=== PATIENT | male | born 1945 | race Caucasian/White ===

== ENCOUNTER 2017-09-16 06:42 | Inpatient (IN) | payer OTHER, SELFPAY ==
[~2017-09-16] VITALS: Ht 165.1 cm; Wt 78.1 kg
[~2017-09-16 06:42] MED LIST: ALBIPROI INH; AMLO10; AMLO5 PO; AMOX500 PO; Ambien10 MG PO; CYCL10 PO; DIAZ2 PO; DIAZ5 PO; DIPATR; Duoneb 2.5-0.5 M3 ML INH; ERGO400 PO; Emla Cream30 GM TP; FLUO10 PO; HYDACE5 PO; HYDMOR2 PO; HYDPAM50 PO; IBUP800 PO; LEVFLO500 PO; LEVSOD150 PO; LEVSOD50; LEVSOD50 PO; LISI5 PO; LORA.5 PO; LORA1 PO; OMEP20ER PO; ONDA8 PO; OXYACE5T PO; OXYC15ER PO; OXYC5 PO; PRED1; PROM25; Prednisone20 MG PO; Roxicodone15 MG PO; SULTRISS PO; Strattera PO; TRAZ50 PO; VENL75ER; Ventolin Soln3 ML INH; ZOLP10; ZOLP5 PO; Zofran8 MG PO; Zoloft50 MG PO
[2017-09-16 08:05] LABS: Hematocrit 32.4 % (37.0-53.0); Hemoglobin 10.2 g/dL (13.5-17.5); Mean Corpuscular HGB 29.7 pg (26.0-34.0); Mean Corpuscular HGB Conc 31.5 g/dL (31.5-36.5); Mean Corpuscular Volume 94 fL (80-100); RDW Coefficient Variation 16.2 % (11.7-14.2); RDW Standard Deviation 56.2 fL (35.1-46.3); Red Blood Cell Count 3.44 M/mm3 (4.30-5.90)
[2017-09-16 08:05] LABS: Influenza A Negative (NEGATIVE); Influenza B Negative (NEGATIVE)
[2017-09-16 08:11] LABS: Platelet Count 13 K/mm3 (150-400); White Blood Cell Count 0.14 K/mm3 (4.00-11.30)
[2017-09-16 08:19] LABS: Alanine Aminotransfer (ALT/SGP 19 U/L (12-78); Albumin, Blood 2.5 g/dL (3.4-5.0); Albumin/Globulin Ratio 0.8 (0.8-1.8); Alk Phos 88 U/L (50-136); Anion Gap 13 mmol/L (6-16); Aspartate Aminotrans (AST/SGOT 8 U/L (12-37); Bilirubin, Total 1.5 mg/dL (0.1-1.0); Blood Urea Nitrogen 18 mg/dL (8-24); Bun/Creatinine Ratio 22.5 (12.0-20.0); CO2, Blood 19 mmol/L (21-32); Calcium, Blood 7.8 mg/dL (8.5-10.1); Chloride, Blood 106 mmol/L (98-108); Glomerular Filtration Rate >60 (60-); Glucose, Blood 326 mg/dL (70-99); Potassium, Blood 4.7 mmol/L (3.5-5.5); Sodium, Blood 138 mmol/L (136-145); Total Protein, Blood 5.5 g/dL (6.4-8.2)
[2017-09-16] MEDS ORDERED: ZOLP10 PO (08:30)
[2017-09-16] MEDS ORDERED: MORP15ER PO (08:34)
[2017-09-16] MEDS ORDERED: Sudogest30 MG PO (15:19)
[2017-09-16] MEDS ORDERED: DULO60 PO (15:22)
[2017-09-16] MEDS ORDERED: LEVSOD150 PO (15:22)
[2017-09-17 04:23] LABS: Hematocrit 28.1 % (37.0-53.0); Hemoglobin 9.1 g/dL (13.5-17.5); Mean Corpuscular HGB 29.9 pg (26.0-34.0); Mean Corpuscular HGB Conc 32.4 g/dL (31.5-36.5); Mean Corpuscular Volume 92 fL (80-100); RDW Coefficient Variation 16.2 % (11.7-14.2); RDW Standard Deviation 55.2 fL (35.1-46.3); Red Blood Cell Count 3.04 M/mm3 (4.30-5.90)
[2017-09-17 04:26] LABS: Platelet Count 6 K/mm3 (150-400)
[2017-09-17 04:39] LABS: Alanine Aminotransfer (ALT/SGP 14 U/L (12-78); Albumin, Blood 2.2 g/dL (3.4-5.0); Albumin/Globulin Ratio 0.7 (0.8-1.8); Alk Phos 65 U/L (50-136); Anion Gap 17 mmol/L (6-16); Aspartate Aminotrans (AST/SGOT 7 U/L (12-37); Bilirubin, Total 1.3 mg/dL (0.1-1.0); Blood Urea Nitrogen 21 mg/dL (8-24); CO2, Blood 15 mmol/L (21-32); Calcium, Blood 7.4 mg/dL (8.5-10.1); Chloride, Blood 114 mmol/L (98-108); Creatinine, Blood 0.88 mg/dL (0.60-1.20); Glomerular Filtration Rate >60 (60-); Glucose, Blood 304 mg/dL (70-99); Magnesium, Blood 2.2 mg/dL (1.6-2.4); Potassium, Blood 4.5 mmol/L (3.5-5.5); Sodium, Blood 146 mmol/L (136-145); Total Protein, Blood 5.2 g/dL (6.4-8.2)
[2017-09-17 06:25] LABS: Prothrombin Time Results 21.2 Sec (9.7-11.5)
[2017-09-17 06:30] LABS: Anion Gap 17 mmol/L (6-16); Blood Urea Nitrogen 22 mg/dL (8-24); Bun/Creatinine Ratio 26.1 (12.0-20.0); CO2, Blood 14 mmol/L (21-32); Calcium, Blood 7.1 mg/dL (8.5-10.1); Chloride, Blood 117 mmol/L (98-108); Creatinine, Blood 0.84 mg/dL (0.60-1.20); Glomerular Filtration Rate >60 (60-); Glucose, Blood 274 mg/dL (70-99); Potassium, Blood 4.5 mmol/L (3.5-5.5); Sodium, Blood 148 mmol/L (136-145)
[2017-09-17 12:05] LABS: Source, Urine Clean Catch
[2017-09-17 12:07] LABS: Bilirubin, Urine Neg (Neg); Blood, Urine 5+ (Neg); Glucose Qualitative, Urine 4+ (Neg); Ketones, Urine 2+ (Neg); Leukocyte Esterase, Urine 1+ (Neg); Nitrite, Urine Neg (Neg); Protein, Urine 3+ (Neg); Urobilinogen, Urine NORM (Normal)
[2017-09-17 12:10] LABS: Appearance, Urine Bloody (Clear); Color, Urine Red (P-Yellow)
[2017-09-17 12:17] LABS: Anion Gap 15 mmol/L (6-16); Blood Urea Nitrogen 21 mg/dL (8-24); CO2, Blood 16 mmol/L (21-32); Calcium, Blood 7.3 mg/dL (8.5-10.1); Chloride, Blood 116 mmol/L (98-108); Creatinine, Blood 0.72 mg/dL (0.60-1.20); Glomerular Filtration Rate >60 (60-); Glucose, Blood 204 mg/dL (70-99); Potassium, Blood 4.1 mmol/L (3.5-5.5); Sodium, Blood 147 mmol/L (136-145)
[2017-09-17 12:18] LABS: Red Blood Cells, Urine TNTC /hpf (0-2); Squamous Epithelial Cells Not Seen /hpf (Few)
[2017-09-17 12:19] LABS: Bacteria Not Seen /hpf; White Blood Cells, Urine Not Seen /hpf (0-5)
[2017-09-18 04:14] LABS: BASOPHILS PERCENT AUTO 0 % (0-2); EOSINOPHILS PERCENT AUTO 0 % (0-6); Hematocrit 25.7 % (37.0-53.0); Hemoglobin 8.3 g/dL (13.5-17.5); IMMATURE GRAN PERCENT AUTO 0 % (0-1); LYMPHOCYTES PERCENT AUTO 91 % (21-46); MONOCYTES ABSOLUTE AUTO 0.01 K/mm3 (0.16-1.47); MONOCYTES PERCENT AUTO 9 % (4-13); Mean Corpuscular HGB 30.1 pg (26.0-34.0); Mean Corpuscular HGB Conc 32.3 g/dL (31.5-36.5); Mean Corpuscular Volume 93 fL (80-100); Mean Platelet Volume 10.3 fL (9.1-12.4); NEUTROPHILS PERCENT AUTO 0 % (41-73); RDW Coefficient Variation 16.2 % (11.7-14.2); RDW Standard Deviation 55.5 fL (35.1-46.3); Red Blood Cell Count 2.76 M/mm3 (4.30-5.90)
[2017-09-18 04:21] LABS: Platelet Count 9 K/mm3 (150-400); White Blood Cell Count 0.11 K/mm3 (4.00-11.30)
[2017-09-18 04:26] LABS: International Normalized Ratio 1.97; Prothrombin Time Results 20.9 Sec (9.7-11.5)
[2017-09-18 04:32] LABS: Alanine Aminotransfer (ALT/SGP 12 U/L (12-78); Albumin, Blood 1.7 g/dL (3.4-5.0); Albumin/Globulin Ratio 0.6 (0.8-1.8); Alk Phos 52 U/L (50-136); Anion Gap 14 mmol/L (6-16); Aspartate Aminotrans (AST/SGOT 10 U/L (12-37); Bilirubin, Total 1.1 mg/dL (0.1-1.0); Blood Urea Nitrogen 28 mg/dL (8-24); Bun/Creatinine Ratio 39.3 (12.0-20.0); CO2, Blood 17 mmol/L (21-32); Calcium, Blood 7.2 mg/dL (8.5-10.1); Chloride, Blood 115 mmol/L (98-108); Creatinine, Blood 0.71 mg/dL (0.60-1.20); Globulin, Blood 2.7 g/dL (2.2-4.0); Glomerular Filtration Rate >60 (60-); Glucose, Blood 233 mg/dL (70-99); Potassium, Blood 3.5 mmol/L (3.5-5.5); Sodium, Blood 146 mmol/L (136-145); Total Protein, Blood 4.4 g/dL (6.4-8.2)
[2017-09-18 17:32] LABS: Vancomycin, Trough 10.7 ug/mL (5.0-10.0)
[2017-09-18 22:53] LABS: Alanine Aminotransfer (ALT/SGP 11 U/L (12-78); Albumin, Blood 1.6 g/dL (3.4-5.0); Albumin/Globulin Ratio 0.6 (0.8-1.8); Alk Phos 53 U/L (50-136); Anion Gap 18 mmol/L (6-16); Aspartate Aminotrans (AST/SGOT 5 U/L (12-37); Bilirubin, Total 0.8 mg/dL (0.1-1.0); Blood Urea Nitrogen 36 mg/dL (8-24); Bun/Creatinine Ratio 51.2 (12.0-20.0); CO2, Blood 14 mmol/L (21-32); Chloride, Blood 116 mmol/L (98-108); Globulin, Blood 2.9 g/dL (2.2-4.0); Glomerular Filtration Rate >60 (60-); Glucose, Blood 389 mg/dL (70-99); Magnesium, Blood 2.2 mg/dL (1.6-2.4); Sodium, Blood 148 mmol/L (136-145); Total Protein, Blood 4.5 g/dL (6.4-8.2)
[2017-09-19 08:27] LABS: Hematocrit 30.1 % (37.0-53.0); Hemoglobin 9.7 g/dL (13.5-17.5); Mean Corpuscular HGB 29.4 pg (26.0-34.0); Mean Corpuscular HGB Conc 32.2 g/dL (31.5-36.5); Mean Corpuscular Volume 91 fL (80-100); NRBC ABSOLUTE 0.03 K/mm3 (0.00-0.02); NRBC Auto 24.8 /100 WBC (0.0-0.2); RDW Coefficient Variation 16.5 % (11.7-14.2); RDW Standard Deviation 54.8 fL (35.1-46.3)
[2017-09-19 08:40] LABS: Platelet Count 8 K/mm3 (150-400); White Blood Cell Count 0.13 K/mm3 (4.00-11.30)
[2017-09-19 08:51] LABS: BASOPHILS PERCENT MAN 0 % (0-2); EOSINOPHILS PERCENT MAN 0 % (0-6); LYMPHOCYTES ABSOLUTE MAN 0.13 K/mm3 (0.84-5.20); LYMPHOCYTES PERCENT MAN 100 % (21-46); MONOCYTES PERCENT MAN 0 % (4-13); TOTAL CELLS COUNTED 5
[2017-09-19 12:20] LABS: Base Excess Venous -10.8 mmol/L; Bicarbonate Venous 16.6 mmol/L (24.0-30.0); PCO2 Venous 26.1 mmHg (38-42); PO2 Venous 62.8 mmHg (38-42); pH Blood Venous 7.36 (7.34-7.37)
[2017-09-19 22:53] LABS: Hematocrit 30.7 % (37.0-53.0); Hemoglobin 9.2 g/dL (13.5-17.5); Mean Corpuscular HGB 29.7 pg (26.0-34.0); Mean Platelet Volume 10.3 fL (9.1-12.4); NRBC ABSOLUTE 0.05 K/mm3 (0.00-0.02); NRBC Auto 16.6 /100 WBC (0.0-0.2); RDW Coefficient Variation 17.3 % (11.7-14.2); RDW Standard Deviation 62.4 fL (35.1-46.3)
[2017-09-19 22:55] LABS: Mean Corpuscular Volume 99 fL (80-100)
[2017-09-19 22:57] LABS: Platelet Count 38 K/mm3 (150-400); White Blood Cell Count 0.32 K/mm3 (4.00-11.30)
[2017-09-19 23:06] LABS: International Normalized Ratio 1.48; Prothrombin Time Results 15.6 Sec (9.7-11.5)
[2017-09-19 23:12] LABS: Troponin I 0.293 ng/mL (0.000-0.040)
[2017-09-20 00:59] LABS: Hematocrit 30.1 % (37.0-53.0); Hemoglobin 9.2 g/dL (13.5-17.5)
[2017-09-20 01:09] LABS: PCO2 Venous 29.4 mmHg (38-42); PO2 Venous 96.8 mmHg (38-42); pH Blood Venous 6.97 (7.34-7.37)
[2017-09-20 01:10] LABS: Base Excess Venous -25.1 mmol/L; Bicarbonate Venous 7.6 mmol/L (24.0-30.0)
== END 2017-09-20 05:54 | DRG 871 ==
LOC: ER 06:42 → ERHOLD 11:24 → MEDS 11:24 → ICUW 09-17 04:35
PROVIDERS: Emergency Medicine; Hospitalist; Internal Medicine; Internal Medicine Critical Care Medicine
PROC: 3E0234Z Introduction of Serum, Toxoid and Vaccine into Muscle, Percutaneous Approach (ICD-10-PCS; 2017-09-16)
PROC: 5A1945Z Respiratory Ventilation, 24-96 Consecutive Hours (ICD-10-PCS; principal; 2017-09-18)
PROC: 02HV33Z Insertion of Infusion Device into Superior Vena Cava, Percutaneous Approach (ICD-10-PCS; 2017-09-18)
PROC: B548ZZA Ultrasonography of Superior Vena Cava, Guidance (ICD-10-PCS; 2017-09-18)
PROC: 0BH17EZ Insertion of Endotracheal Airway into Trachea, Via Natural or Artificial Opening (ICD-10-PCS; 2017-09-18)
DX: A41.01 Sepsis due to Methicillin susceptible Staphylococcus aureus (principal); R65.21 Severe sepsis with septic shock; J96.00 Acute respiratory failure, unspecified whether with hypoxia or hypercapnia; J15.211 Pneumonia due to Methicillin susceptible Staphylococcus aureus; C78.02 Secondary malignant neoplasm of left lung; C78.01 Secondary malignant neoplasm of right lung; D70.9 Neutropenia, unspecified; C78.7 Secondary malignant neoplasm of liver and intrahepatic bile duct; I47.1 Supraventricular tachycardia; I48.91 Unspecified atrial fibrillation; C79.51 Secondary malignant neoplasm of bone; C18.9 Malignant neoplasm of colon, unspecified; D69.6 Thrombocytopenia, unspecified; R50.81 Fever presenting with conditions classified elsewhere; E86.0 Dehydration; N40.1 Benign prostatic hyperplasia with lower urinary tract symptoms; R33.8 Other retention of urine; E03.9 Hypothyroidism, unspecified; Z66 Do not resuscitate; Z51.5 Encounter for palliative care
CPT/HCPCS: 31500; 31720; 36415; 36430; 36556; 51703; 51798; 71045; 71046; 74176; 80048; 80053; 80202; 81001; 82550; 82803; 82947; 83036; 83605; 83690; 83735; 83880; 84484; 85007; 85014; 85018; 85025; 85027; 85060; 85610; 86900; 86901; 87040; 87070; 87077; 87102; 87106; 87147; 87186; 87205; 87804; 93005; 93010; 93306; 94002; 94003; 96361; 96365; 96366; 99285; C1751; C9113; J0282; J0330; J1160; J1447; J1642; J1940; J1956; J2060; J2250; J2270; J2370; J2543; J2930; J3370; J3475; J7030; J7040; J7050; J7060; J7070; J7120; P9035; Q2038